=== PATIENT | female | born 1940 | race Caucasian/White ===

== ENCOUNTER 2020-10-07 16:18 | Inpatient (IN) | payer MEDICARE ==
[~2020-10-07] VITALS: Ht 172.7 cm; Wt 41.7 kg
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
--- NOTE | 2020-10-07 16:22 | NUR ---
seen and eval by PA
[2020-10-07] MEDS ORDERED: ALPR0.25 PO (16:38)
[2020-10-07] MEDS ORDERED: DONE5TAB34 PO (16:38)
[2020-10-07] MEDS ORDERED: VENL150C58 PO (16:38)
[2020-10-07 16:52] LABS: BASOPHILS % (AUTO) 0.3 % (0.0-2.0); HEMATOCRIT 36 % (33-45); HEMOGLOBIN 12.2 g/dL (11.5-14.8); LYMPHOCYTES # (AUTO) 0.8 /CMM (0.8-4.8); LYMPHOCYTES % (AUTO) 14.5 % (20.0-44.0); MEAN CORPUSCULAR HGB CONC 34 g/dl (31.0-36.0); MEAN CORPUSCULAR VOLUME 92 fL (82-100); MONOCYTES # (AUTO) 0.3 /CMM (0.1-1.30); NEUTROPHILS # (AUTO) 4.4 /CMM (1.8-8.9); NEUTROPHILS % (AUTO) 79.2 % (43.0-81.0); PLATELET COUNT (AUTO) 180 /CMM (150-450); RED BLOOD CELL COUNT(AUTO) 3.96 MIL/uL (4.0-5.2); WHITE BLOOD COUNT (AUTO) 5.6 K/uL (4.3-11.0)
[2020-10-07 17:08] LABS: ACETAMINOPHEN 0 ug/ml (10-30); ALANINE AMINOTRANSFERASE 24 U/L (12-78); ALBUMIN 3.5 g/dL (3.4-5.0); ALCOHOL, BLOOD < 3 mg/dL (0-0); ALKALINE PHOSPHATASE 91 U/L (46-116); ASPARTATE AMINOTRANSFERASE 25 U/L (15-37); BILIRUBIN,DIRECT 0.1 mg/dL (0.0-0.2); BILIRUBIN,TOTAL 0.5 mg/dL (0.2-1.0); CALCIUM, SERUM 9.2 mg/dL (8.5-10.1); CARBON DIOXIDE 23 mmol/L (21-32); CHLORIDE 101 mmol/L (98-107); GLUCOSE 199 mg/dL (74-106); POTASSIUM 3.5 mmol/L (3.5-5.1); SODIUM SERUM 136 mmol/L (136-145); TOTAL PROTEIN, SERUM 6.5 g/dL (6.4-8.2); UREA NITROGEN, BLOOD 11 mg/dL (7-18)
[2020-10-07] MEDS ORDERED: VENL150T PO (18:09)
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
--- NOTE | 2020-10-07 18:51 | NUR ---
Received pt. via a wheelchair and wheeled by ER staff. V/S taken and contraband done. dr. Jewell made aware of the admission and gave orders.
[2020-10-07 18:53] VITALS: BP 149/92
[2020-10-07] MEDS ORDERED: MAG HYDROX/AL HYDROX/SIMETH 30 ML UDC PO PRN (19:00)
[2020-10-07] MEDS ORDERED: TEMAZEPAM 7.5 MG CAPSULE PO PRN (19:00)
[2020-10-07] MEDS ORDERED: LORAZEPAM 0.5 MG TABLET PO PRN (19:00)
[2020-10-07] MEDS ORDERED: MAGNESIUM HYDROXIDE 30 ML UDC PO PRN (19:00)
[2020-10-07] MEDS ORDERED: BLOOD SUGAR DIAGNOSTIC 1 EACH STRIP IN ONE (19:00)
[2020-10-07] MEDS ORDERED: ACETAMINOPHEN 325 MG TABLET PO PRN (19:00)
[2020-10-07 20:06] VITALS: BP 135/84
[2020-10-07] MEDS ORDERED: CLONIDINE HCL 0.1 MG TABLET PO PRN (22:00)
[2020-10-07 22:14] VITALS: BP 135/84
--- NOTE | 2020-10-08 06:38 | NUR ---
GPS RN NOTE: HEADACHE PT. C/O OF HEADACHE. ADMINISTERED TYLENOL 650 MG PO PRN ORDERED. WILL CONTINUE TO MONITOR.
[2020-10-08 06:59] LABS: CHOLESTEROL 197 mg/dL (<200); HDL CHOLESTEROL 85 mg/dL (40-60); LDL 99 mg/dL (0-99); TRIGLYCERIDES 91 mg/dL (30-150)
[2020-10-08 07:01] LABS: BILIRUBIN,TOTAL 0.7 mg/dL (0.2-1.0); CALCIUM, SERUM 9.1 mg/dL (8.5-10.1); CREATININE 0.8 mg/dL (0.6-1.3); POTASSIUM 3.9 mmol/L (3.5-5.1); TOTAL PROTEIN, SERUM 7.3 g/dL (6.4-8.2)
[2020-10-08 08:32] VITALS: BP 142/97
[2020-10-08] MEDS: DIVALPROEX SODIUM 125 MG CAP.SPRINK PO SCH ×2 (12:52→16:08)
[2020-10-08 16:00] VITALS: BP 143/93
[2020-10-08 20:31] VITALS: BP 133/77
[2020-10-09 08:00] VITALS: BP 135/92
[2020-10-09] MEDS: DIVALPROEX SODIUM 125 MG CAP.SPRINK PO SCH ×3 (08:00→16:42)
[2020-10-09] MEDS ORDERED: ENSURE ENLIVE 237 ML LIQUID (VANILLA) PO SCH (12:00)
[2020-10-09 16:00] VITALS: BP 139/87
[2020-10-09] MEDS: ENSURE ENLIVE 237 ML LIQUID (VANILLA) PO SCH (17:25)
[2020-10-09 20:00] VITALS: BP 145/76
--- NOTE | 2020-10-09 20:00 | NUR ---
GPS/RN OPENING NOTE Patient awake in bed, A/O x1-2 calm and cooperative. No acute distress or SOB noted. Patient denies pain, N/V/D. Patient is ambulatory with steady gait. Denies SI/HI. Will continue to monitor for safety and behavior.
[2020-10-09] MEDS: QUETIAPINE FUMARATE 25 MG TABLET PO SCH (21:05)
[2020-10-10 08:00] VITALS: BP 124/86
[2020-10-10] MEDS: DIVALPROEX SODIUM 125 MG CAP.SPRINK PO SCH ×3 (08:17→16:02)
[2020-10-10] MEDS: ENSURE ENLIVE 237 ML LIQUID (VANILLA) PO SCH ×3 (08:30→16:02)
--- NOTE | 2020-10-10 09:28 | NUR ---
GPS/RN NOTES Patient awake in bed, A/O x1-2. No acute distress or SOB noted. Able to communicate needs.Afebrile. No N/V/D noted. Ate breakfast in the activity room and smiled when giving medication. Ambulatory steady gait, denies SI/HI.Will continue to monitor for safety and behavior.
--- NOTE | 2020-10-10 11:13 | NUR ---
Family Contact: SW called the pts , James ([phone]), and was unable to leave a message due to a busy dial tone.
--- NOTE | 2020-10-10 12:48 | NUR ---
Initial Discharge Plan: Pt currently resides at her home with her located at [facility] [address], [place], [place] [address]; ([phone]). Per pt, she would like to return to her home. MITCH will work with the pt and the MD regarding appropriate discharge planning. SW will form a safe and proper plan.
--- NOTE | 2020-10-10 15:06 | NUR ---
Group Note: SW encouraged the pt to attend group therapy on 10/10/20 at 2pm on the topic of suicidal ideation. Pt stated that she does not have suicidal ideation but stated that she does feel depressed at times. Pt states that she does not know how to deal with her stress. Pt states that she has been taking it out on her and that is not working anymore. Pt was deemed inappropriate for group/individual at this time.
[2020-10-10 16:00] VITALS: BP 127/72
[2020-10-10] MEDS: QUETIAPINE FUMARATE 25 MG TABLET PO SCH (21:21)
[2020-10-10 21:56] VITALS: BP 124/82
--- NOTE | 2020-10-11 07:04 | NUR ---
GPS RN CLOSING NOTE: PT IS CURRENTLY LAYING ON BED AWAKE. SLEPT 6.5HR THIS SHIFT. NO S/S OF DISTRESS. RESPIRATION EVEN AND UNLABORED WITH EQUAL RISE AND FALL OF THE CHEST ON ROOM AIR. ALL PT CARE NEEDS MET ANTICIPATED. BED IS LOCKED AND IN LOWEST POSITION. WILL CONTINUE TO MONITOR AND ENDORSE TO AM SHIFT.
[2020-10-11 08:00] VITALS: BP 136/79
[2020-10-11] MEDS: ENSURE ENLIVE 237 ML LIQUID (VANILLA) PO SCH ×3 (08:12→17:26)
[2020-10-11] MEDS: DIVALPROEX SODIUM 125 MG CAP.SPRINK PO SCH ×3 (08:45→17:26)
--- NOTE | 2020-10-11 10:56 | NUR ---
Family Contact: SW called the pts , James ([phone]), and confirmed that the pt can return to her home upon discharge. Pts stated that he would like her to come home as soon as possible and stated that he would be able to pick her up if there is a notice in advance since they live 5 hours away. SW stated that she will keep him updated.
[2020-10-11 16:00] VITALS: BP 135/83
[2020-10-11 20:00] VITALS: BP 138/84
[2020-10-11] MEDS: QUETIAPINE FUMARATE 25 MG TABLET PO SCH (21:28)
[2020-10-12 08:00] VITALS: BP 123/77
[2020-10-12] MEDS: ENSURE ENLIVE 237 ML LIQUID (VANILLA) PO SCH ×3 (08:45→17:05)
[2020-10-12] MEDS: DIVALPROEX SODIUM 125 MG CAP.SPRINK PO SCH ×3 (09:32→17:03)
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
[2020-10-12 16:00] VITALS: BP 117/77
[2020-10-12 19:58] VITALS: BP 128/80
[2020-10-12] MEDS: QUETIAPINE FUMARATE 25 MG TABLET PO SCH (21:26)
[2020-10-13] MEDS: DIVALPROEX SODIUM 125 MG CAP.SPRINK PO SCH ×3 (08:19→16:28)
[2020-10-13] MEDS: ENSURE ENLIVE 237 ML LIQUID (VANILLA) PO SCH ×3 (08:19→16:28)
[2020-10-13 08:44] VITALS: BP 119/76
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
--- NOTE | 2020-10-13 14:06 | NUR ---
Family Contact: MITCH called the pts , James ([phone]), and informed him that the pt will be discharged on Saturday. He stated that he would come pick her up around 1pm.
--- NOTE | 2020-10-13 14:24 | NUR ---
PC Hearing: Pts [phone] hold was upheld for grave disability.
[2020-10-13 16:10] VITALS: BP 138/88
--- NOTE | 2020-10-13 16:25 | NUR ---
Group Note: SW encouraged the pt to attend group therapy on 10/13/20 on discharge planning. Pt became emotional when she stated that she will be returning to her home since her wants her back. Pt shared that she felt nervous that her would not take her back and she expressed that she has learned that she has to manage her behaviors non violently.
[2020-10-13 20:16] VITALS: BP 137/88
[2020-10-13] MEDS: QUETIAPINE FUMARATE 25 MG TABLET PO SCH (22:21)
--- NOTE | 2020-10-14 06:39 | NUR ---
GPS RN CLOSING NOTE: PT IS CURRENTLY LAYING ON BED AWAKE. SLEPT 7HR THIS SHIFT. NO S/S OF DISTRESS. RESPIRATION EVEN AND UNLABORED WITH EQUAL RISE AND FALL OF THE CHEST ON ROOM AIR. ALL PT CARE NEEDS MET ANTICIPATED. BED IS LOCKED AND IN LOWEST POSITION. WILL CONTINUE TO MONITOR AND ENDORSE TO AM SHIFT.
[2020-10-14] MEDS: ENSURE ENLIVE 237 ML LIQUID (VANILLA) PO SCH ×3 (07:42→17:14)
[2020-10-14] MEDS: DIVALPROEX SODIUM 125 MG CAP.SPRINK PO SCH ×3 (07:42→17:14)
[2020-10-14 07:44] VITALS: BP 112/75
--- NOTE | 2020-10-14 15:21 | NUR ---
GROUP NOTE: SW encouraged pt to attend group on this day. Pt was asleep and not easily roused by verbal cues.
[2020-10-14 19:55] VITALS: BP 132/80
--- NOTE | 2020-10-14 21:20 | NUR ---
GPS RN NOTE: LEFT HIP/BUTTOCK SKIN DISCOLORATION PATIENT NOTED WITH BIG BRUISE TO LEFT POSTERIOR HIP & BUTTOCK, PATIENT REFUSED TO TAKE PICTURE, GOT RESTLESS & WANTED TO COVER HERSELF RIGHT AWAY. PATIENT ALSO REFUSED ASSESSMENT OF BACK, ABDOMEN & CHEST. CONTINUING TO MONITOR FOR SAFETY & BEHAVIOR.
[2020-10-14] MEDS: QUETIAPINE FUMARATE 25 MG TABLET PO SCH (21:54)
[2020-10-15] MEDS: ENSURE ENLIVE 237 ML LIQUID (VANILLA) PO SCH ×3 (08:05→16:44)
[2020-10-15] MEDS: DIVALPROEX SODIUM 125 MG CAP.SPRINK PO SCH ×3 (08:06→16:45)
[2020-10-15 08:31] VITALS: BP 146/88
[2020-10-15 16:05] VITALS: BP 124/84
[2020-10-15 20:18] VITALS: BP 110/66
[2020-10-15] MEDS: QUETIAPINE FUMARATE 25 MG TABLET PO SCH (21:08)
[2020-10-16] MEDS: ENSURE ENLIVE 237 ML LIQUID (VANILLA) PO SCH ×3 (07:40→17:27)
[2020-10-16] MEDS: DIVALPROEX SODIUM 125 MG CAP.SPRINK PO SCH ×3 (07:40→17:27)
[2020-10-16 08:00] VITALS: BP 123/76
[2020-10-16 16:00] VITALS: BP 113/73
--- NOTE | 2020-10-16 19:28 | NUR ---
GPS RN NOTE, RECEIVED PATIENT AWAKE AND IN BED, NO S/S OR COMPLAINTS OF PAIN AT THIS TIME. PATIENT IS DISPLAYING NO S/S OF APPARENT DISTRESS AT THIS TIME. PATIENT BREATHING IS UNLABORED WITH EQUAL RISE AND FALL OF THE CHEST. PATIENT IS ALERT AND ORIENTED X 2-3 ON ROOM AIR WITH A SPO2 99%. PATIENT IS COMPLIANT WITH MEDICATIONS, CALM, PLEASANT, AND COOPERATIVE. PATIENT DENIES SUICIDAL AND HOMICIDAL IDEATIONS AT THIS TIME. PATIENT ASSISTED WITH TURNING AND REPOSITIONING Q2HR AND PRN FOR COMFORT AND CIRCULATION. PATIENT HAS NO NEEDS AT THIS TIME. PATIENT EDUCATED ON THE USE OF THE CALL ENCINAS. PATIENT BED SIDE RAILS UP X 2 FOR SAFETY. PATIENT BED IS LOCKED, LOW, WITH BED ALARM ON. WILL CONTINUE TO MONITOR THIS PATIENT Q15 MINUTES WITH THE HELP OF STAFF TO MAINTAIN SAFETY.
--- NOTE | 2020-10-16 19:45 | NUR ---
GPS RN NOTE, PATIENT REFUSED SKIN EXAM AND PHOTOS OFFERED TO DO SKIN EXAM THREE TIMES AND STILL PATIENT WHILE STATING, " NO I'M LEAVING TOMORROW AND IT'S MY BODY ". EXPLAINED TO PATIENT THAT ITS HOSPITAL POLICY TO SKIN EXAM ON SATURDAY. WILL CONTINUE TO MONITOR THIS PATIENT WITH THE HELP OF STAFF. Addendum: 10/16/20 at 1951 by CHERELLE CASSIDY RN GPS RN NOTE, PATIENT REFUSED SKIN EXAM AND PHOTOS. OFFERED TO DO SKIN EXAM THREE TIMES AND STILL PATIENT REFUSED WHILE STATING, " NO I'M LEAVING TOMORROW AND IT'S MY BODY ". EXPLAINED TO PATIENT THAT ITS HOSPITAL POLICY TO SKIN EXAM ON SATURDAY. WILL CONTINUE TO MONITOR THIS PATIENT WITH THE HELP OF STAFF.
[2020-10-16] MEDS: QUETIAPINE FUMARATE 25 MG TABLET PO SCH (21:47)
[2020-10-17] MEDS: DIVALPROEX SODIUM 125 MG CAP.SPRINK PO SCH (08:07)
--- NOTE | 2020-10-17 08:11 | NUR ---
DISCHARGE NOTE: Pt will be discharged back to her [place] at [address] [place] [address]; ([phone]). Pts , James ([phone]), will pick the pt up around 1PM. Patient is alert and oriented x4 and is aware and agreeable with discharge plan. Patient denies suicidal or homicidal ideation. Patient presents with euthymic mood and congruent affect. Patient will be following up with an outpatient psychiatrist at [facility] located [address], [place] [address] ([phone]); referral was faxed to and SW was informed that the mental health will contact the pt to set up an appointment. Patient will be following up with a primary care physician Dr. Humaira Patel located at [address] [place] [address], [place] [address] ([phone]); fax of records was sent to: ([phone]). MITCH was informed that the pt will have to call and make an appointment and the first available is in December.
[2020-10-17 08:13] VITALS: BP 126/78
[2020-10-17] MEDS: ENSURE ENLIVE 237 ML LIQUID (VANILLA) PO SCH ×2 (08:43→12:33)
--- NOTE | 2020-10-17 12:00 | NUR ---
CASTING MACHINE OPERATOR NOTE: 80 YEAR OLD FEMALE DISCHARGED HOME IN STABLE CONDITION. COMPLIANT WITH MEDICATIONS, COOPERATIVE WITH TREATMENT PLANS. PATIENT DENIES SI/HI AND INSTRUCTED TO GO TO THE CLOSEST ER IF DEVELOPING SI/HI. BEHAVIOR IMPROVVED, PSYCHIATRIC TREATMENT PLANS MET, MEDICAL TREATMENT PLANS DEFERRED FOR CONTINUAL MONITORING. EDUCATED PT AND , MAYRA, ABOUT AFTER CARE PLAN AND COPY PROVIDED. RETURNED PERSONAL BELONGINGS TO PATIENT. MEDICATIONS RECONCILED WITH DR. ANAYA AND DR. PAULINO. SIGNED CONTINUING CARE ADVISORY. PT REFUSED SKIN ASSESSMENT.SKIN INTACT WITH BRUISING ON ADMIT. PT ID BANDS REMOVED. PT LEFT THE UNIT VIA WHEEL CHAIR AT 1200 AND TO BE TRANSPORTED HOME BY IN PRIVATE VECHICLE.
== END 2020-10-17 12:00 | disposition home or self-care (01) | DRG 885 ==
LOC: ER 16:29 → GPS 17:38
PROVIDERS: ADMIT Psychiatry & Neurology Psychosomatic Medicine; ATTEND Internal Medicine
DX: F25.0 Schizoaffective disorder, bipolar type (principal); F03.90 Unspecified dementia, unspecified severity, without behavioral disturbance, psychotic disturbance, mood disturbance, and anxiety; F32.9 Major depressive disorder, single episode, unspecified; F41.9 Anxiety disorder, unspecified; F39 Unspecified mood [affective] disorder; Z91.041 Radiographic dye allergy status; Z79.899 Other long term (current) drug therapy; Z73.6 Limitation of activities due to disability; R27.8 Other lack of coordination; Z91.81 History of falling; R73.9 Hyperglycemia, unspecified; R53.1 Weakness
CPT/HCPCS: 36415; 73130-TC; 80048-TC; 80053-TC; 80061-TC; 80076-TC; 82962-TC; 85025-TC; 87081-TC; G0480